=== PATIENT | female | born 1975 | race Asian ===

== ENCOUNTER → 2017-09-15 | Day surgery (SDC) | payer OTHER ==
[~2017-09-15] MED LIST: PROPOFOL 20 ML ONE
[2017-09-15 13:18] VITALS: BMI 30.2
--- NOTE | 2017-09-15 13:47 | PROC ---
Endoscopy Procedure Endoscopy procedure completed. Please see scanned procedure report.
[2017-09-15 13:53] VITALS: TEMP 98.2
[2017-09-15 14:28] VITALS: BP 121/78; PULSE 72
--- NOTE | 2017-09-17 13:03 | PATH ---
Surgical Pathology Report Patient Name: SHIMON CASON [facility]. Rec. #: [id number] /Age/Gender: 1975 (Age: 42) / F Account: [id number] Location: [facility]-ENDOSCOPY Taken: 09/15/2017 Received: 09/16/2017 Reported: 09/17/2017 Physicians: Joesph Mckeon M.D. Specimen(s) Received A: BX DUODENUM 2ND PORTION B: BX ANTRUM AND BODY Clinical History Acid reflux Postoperative diagnosis: Same Final Diagnosis A. DUODENUM, SECOND PORTION, BIOPSY: DUODENAL MUCOSA WITHOUT SIGNIFICANT PATHOLOGIC FINDINGS. B. STOMACH, ANTRUM AND BODY, BIOPSY: GASTRIC ANTRAL AND BODY MUCOSA WITH MILD CHRONIC GASTRITIS. IMMUNOHISTOCHEMICAL STAIN FOR H. PYLORI IS NEGATIVE. Electronically Signed Cori Moreno M.D. Gross Description A. Received in formalin, labeled "biopsy second portion of duodenum" are 2 grissom, irregular portions of soft tissue measuring 0.1 and 0.5 cm. in greatest dimension. The specimens are submitted in toto in one cassette. B. Received in formalin, labeled "biopsy antrum and body" are 2 grissom, irregular portions of soft tissue measuring 0.1 and 0.2 cm. in greatest dimension. The specimens are submitted in toto in one cassette. 09/16/2017 [facility]09/16/2017
== END | disposition home or self-care (01) ==
LOC: JASU-ENDO 12:15
PROVIDERS: ATTEND Internal Medicine Gastroenterology
PROC: 0DB68ZX Excision of Stomach, Via Natural or Artificial Opening Endoscopic, Diagnostic (ICD-10-PCS; 2017-09-15)
PROC: 0DB98ZX Excision of Duodenum, Via Natural or Artificial Opening Endoscopic, Diagnostic (ICD-10-PCS; principal; 2017-09-15 11:00)
DX: R10.13 Epigastric pain (principal)
CPT/HCPCS: 84703; 88305-TC; 88342-TC